=== PATIENT | male | born 1985 | race African-American/Black ===

== ENCOUNTER 2017-11-05 19:31 | Emergency (ER) | payer OTHER ==
[~2017-11-05] VITALS: Ht 170.2 cm; Wt 73.0 kg
[2017-11-05] MEDS ORDERED: IBUPROFEN 600MG TABLET PO ONE (21:15)
[2017-11-05 21:54] VITALS: BP 117/75
== END 2017-11-05 21:57 | disposition home or self-care (01) ==
LOC: ER 20:08
DX: S61.215A Laceration without foreign body of left ring finger without damage to nail, initial encounter (principal); F12.10 Cannabis abuse, uncomplicated; W22.8XXA Striking against or struck by other objects, initial encounter; Y93.89 Activity, other specified; Y92.89 Other specified places as the place of occurrence of the external cause; Y99.8 Other external cause status
CPT/HCPCS: 12001; 99283

== ENCOUNTER 2017-11-21 18:56 | Emergency (ER) | payer OTHER ==
[~2017-11-21] VITALS: Ht 170.2 cm; Wt 73.0 kg
[2017-11-21 21:04] VITALS: BP 118/73
== END 2017-11-21 21:28 | disposition home or self-care (01) ==
LOC: ER 20:30
DX: Z48.02 Encounter for removal of sutures (principal)
CPT/HCPCS: 99281

== ENCOUNTER 2019-06-28 08:11 | Emergency (ER) | payer OTHER ==
[~2019-06-28] VITALS: Ht 170.2 cm; Wt 69.0 kg
[2019-06-28 08:21] VITALS: BP 115/66
== END 2019-06-28 08:52 | disposition home or self-care (01) ==
LOC: ER 08:11
DX: M54.6 Pain in thoracic spine (principal); V49.49XA Driver injured in collision with other motor vehicles in traffic accident, initial encounter; Y93.89 Activity, other specified; Y92.89 Other specified places as the place of occurrence of the external cause; Y99.8 Other external cause status; F12.10 Cannabis abuse, uncomplicated
CPT/HCPCS: 99281; 99283